=== PATIENT | female | born 1950 | race Caucasian/White ===

== ENCOUNTER → 2023-12-24 06:28 | Day surgery (SDC) | payer MEDICARE, OTHER, SELFPAY | LOC: GI 06:28 | PROVIDERS: ATTENDING PHYSICIAN Internal Medicine Gastroenterology | DX: R13.10 Dysphagia, unspecified (principal); K22.2 Esophageal obstruction; K44.9 Diaphragmatic hernia without obstruction or gangrene; Q39.9 Congenital malformation of esophagus, unspecified; K31.89 Other diseases of stomach and duodenum; K29.50 Unspecified chronic gastritis without bleeding; K20.80 Other esophagitis without bleeding | CPT/HCPCS: 43239; 88305; 88342 ==

== ENCOUNTER → 2023-12-31 13:03 | Outpatient (REF) | payer MEDICARE, OTHER, SELFPAY | LOC: WDC 13:03 | PROVIDERS: ATTENDING PHYSICIAN Obstetrics & Gynecology; FAMILY PHYSICIAN Family Medicine | DX: R92.2 Inconclusive mammogram (principal); M85.89 Other specified disorders of bone density and structure, multiple sites | CPT/HCPCS: 88305; 76641; 77080; 88341; 88342; 88360 ==

== ENCOUNTER → 2024-02-18 19:55 | Outpatient (REF) | payer MEDICARE, OTHER, SELFPAY | LOC: MRI 19:55 | PROVIDERS: ATTENDING PHYSICIAN Nurse Practitioner; FAMILY PHYSICIAN Family Medicine | DX: G50.0 Trigeminal neuralgia (principal) | CPT/HCPCS: 70553; A9575 ==

== ENCOUNTER → 2024-06-22 13:39 | Outpatient (REF) | payer MEDICARE, OTHER, SELFPAY | LOC: WDC 13:39 | PROVIDERS: ATTENDING PHYSICIAN Obstetrics & Gynecology; FAMILY PHYSICIAN Family Medicine | DX: Z12.31 Encounter for screening mammogram for malignant neoplasm of breast (principal); R92.8 Other abnormal and inconclusive findings on diagnostic imaging of breast | CPT/HCPCS: 76642; 77063; 77067 ==

== ENCOUNTER 2025-01-03 10:46 | Emergency (ER) | payer MEDICARE, OTHER, SELFPAY ==
[2025-01-03 10:53] VITALS: BP 142/78
--- NOTE | 2025-01-03 11:11 | EDRN ---
This RN assumed care of this pt at this time.
--- NOTE | 2025-01-03 11:11 | EDRN ---
Leidy Lofton PA in to see pt.
--- NOTE | 2025-01-03 11:16 | ED.GENMED ---
History of Present Illness
General
Chief Complaint: Fall
Source: patient
Exam Limitations: none
Time Seen by Provider: 01/03/25 10:59
History of Present Illness
History of Present Illness:
74yoF with a history of trigeminal neuralgia and hyperlipidemia presenting for evaluation after a fall about an hour ago. Patient is in the process of moving and has a lot of boxes around her house. Patient tripped over something and fell forward
striking her head against what she believes was a white board. She sustained a left eyebrow laceration during the fall. There was no loss of consciousness. Patient currently reports headache and lightheadedness. She is also developing some neck
pain. She denies any visual changes, nausea, vomiting. She does not take any blood thinners. Unknown last Tdap.
Past History
Past History
ED Past Medical History: Other (Trigeminal neuralgia)
ED Past Surgical History: Gynecological
Social History
Tobacco: Non-smoker
Living: with family
Phy Exam
General Physical Exam
General Presentation: well appearing and no apparent distress
General age: appears stated age
General Skin: warm and dry
General Habitus: normal
General Mental: alert
ENT Exam
ENT Exam: other (Approx 3.5cm gaping laceration just inferior to L eyebrow. No active bleeding. No surrounding hematoma.)
Additional ENT: No cervical spine tenderness.
Eye Exam
Eye Exam: PERRL
Neurological Exam
Neurological Exam: alert and no motor deficits
[place] Coma Scale
Eye Opening: Spontaneous
Verbal Response: Oriented
Motor Response: Obeys Commands
GCS Total Score: 15
Skin Exam
Skin Exam: normal color and warm/dry
Psychiatric Exam
Psychiatric Exam: normal mood/affect
Course
Orders/Labs/Results
Orders:
Orders
01/03/25 11:15
CT Cervical Spine W/o Iv Contr Urgent
Comment:
Reason For Exam: fall, head injury
Acetaminophen [Tylenol] 1,000 mg PO NOW STA
Tetanus/Diphth/Acelpertussis [Adacel] 0.5 ml IM .ONCE ONE
01/03/25 11:16
CT Head W/o Iv Contrast Urgent
Comment:
Reason For Exam: fall, head injury
01/03/25 12:10
Ice Pack-Treatment DIRECTED
Location: L eyebrow
Vital Signs
Initial and Last Documented VS:
Initial Vital Signs
Temp Pulse Resp BP Pulse Ox
98.0 F 86 16 142/78 98
01/03/25 10:53 01/03/25 10:53 01/03/25 10:53 01/03/25 10:53 01/03/25 10:53
Last Documented Vital Signs
Temp Pulse Resp BP Pulse Ox
98.0 F 64 16 108/74 97
01/03/25 10:53 01/03/25 14:40 01/03/25 14:40 01/03/25 14:40 01/03/25 14:40
Procedures
Laceration Closure
Left Eye brow:
Status of Wound: clean
Size of Wound in cm: 3.5
Description of Wound Edges: sharp
Preparation: cleaned with saline
Anesthesia: 1% Lidocaine with epi
Wound exploration: explored to base- no FB
Type of Closure: single layer closure
Skin Closure Material: 6-0 prolene
Number of sutures: 6
MDM/Problems Addressed
Differential Diagnosis Includes:
74yoF here after a mechanical fall with head strike. Presenting with a L eyebrow laceration. C/o headache and lightheadedness. VSS. She is awake, alert, with a GCS of 15. No other external signs of head trauma on exam. Differential diagnosis
includes: laceration, closed head injury, intracranial hemorrhage, skull fracture
Initial ED plan: Check CT head and cervical spine. Update Tdap and repair laceration.
*Critical Care Note
Total Time (30-74mins, 75-104mins- exclusive of procedures): Not Applicable
Update Note
Update Note:
Imaging negative for acute traumatic injuries. There is a thyroid nodule seen incidentally as well as a 9 mm rounded low-attenuation area within the white matter which was also seen on MRI previously. This does not correlate with patient's
symptoms. Patient provided with a copy of her radiology reports and instructed to follow-up with her PCP regarding her thyroid nodule. Home wound care and supportive care discussed. Patient instructed to have sutures removed in 5 days. ED return
precautions discussed. Patient expressed understanding and was discharged in stable condition.
ED Attending Note
-
Portions of this chart may have been created with voice recognition software.� Occasional wrong word or��sound alike� substitutions may have occurred due to the inherent limitations of voice recognition software.
Discharge Plan
Departure
Patient Disposition: Home (Routine Discharge)
Date of Disposition: 01/03/25
Time of Disposition: 14:28
Patient with high blood pressure during this ER visit?: No
Discharge Problem:
Head injury, Laceration of left eyebrow
Instructions: Head Injury in Adults (DC), Laceration Repair With Stitches (DC)
Prescriptions:
No Action
atorvastatin 10 mg Tablet
10 mg PO DAILY
carbamazepine 300 mg Capsule, Er Multiphase 12 Hr
300 mg PO BID
Fosamax
1 tab PO .FRIDAY
Referrals:
Arpita Julio MD [Family Provider] -
Activity Restrictions/Additional Instructions:
Stay hydrated and rest. Take Tylenol as needed for headaches. Keep laceration clean and dry.
Sutures should be removed in 5 days.
Please follow-up with your family doctor for the thyroid nodule seen on your CT scan. Return to the ER with any worsening symptoms or signs of infection.
Interventions
Interventions:
*Risk Screen - Suicide Last Done: 01/03/25 12:10
*General Assessment Last Done: 01/03/25 12:10
*Neglect/Abuse Screening Last Done: 01/03/25 12:10
*ED- Fall Risk Assessment Last Done: 01/03/25 12:10
*ED COVID-19 Vaccine History Last Done: 01/03/25 12:10
*Nursing Disposition Last Done: 01/03/25 14:48
ED-Musculoskeletal Assessment Last Done: 01/03/25 12:10
ED- Neurological Assessment Last Done: 01/03/25 12:10
ED-Skin Assessment Last Done: 01/03/25 12:14
Discharge Date and Time
Discharge Date/Time: 01/03/25 14:49
Print Language: STATELESS
--- NOTE | 2025-01-03 11:52 | EDRN ---
Leidy Hernandez PA in room w/ pt.
[2025-01-03 12:10] VITALS: BMI 22.5
[2025-01-03] MEDS: ADACEL 0.5 ML IM (12:22)
[2025-01-03] MEDS: TYLENOL 1000 MG PO (12:23)
[2025-01-03 12:30] VITALS: BP 121/63
--- NOTE | 2025-01-03 14:27 | EDRN ---
Leidy Flores in room w/ pt at this time.
[2025-01-03 14:40] VITALS: BP 108/74
== END 2025-01-03 14:49 | disposition home or self-care (01) ==
LOC: EMR 10:46
PROVIDERS: EMERGENCY PHYSICIAN Emergency Medicine; FAMILY PHYSICIAN Family Medicine
DX: S01.112A Laceration without foreign body of left eyelid and periocular area, initial encounter (principal); S09.90XA Unspecified injury of head, initial encounter; W01.198A Fall on same level from slipping, tripping and stumbling with subsequent striking against other object, initial encounter; E78.5 Hyperlipidemia, unspecified; Z23 Encounter for immunization
CPT/HCPCS: 99285; 12013; 90471; 70450; 72125; 90715

== ENCOUNTER → 2025-02-25 11:14 | Outpatient (REF) | payer MEDICARE, OTHER, SELFPAY | LOC: RAD 11:14 | PROVIDERS: ATTENDING PHYSICIAN Family Medicine | DX: E04.1 Nontoxic single thyroid nodule (principal) | CPT/HCPCS: 76536 ==

== ENCOUNTER → 2025-03-23 13:10 | Outpatient (REF) | payer MEDICARE, OTHER, SELFPAY ==
[2025-03-23 13:27] VITALS: BP 119/58; BP_SYST 74
== END ==
LOC: RADI 13:10
PROVIDERS: ATTENDING PHYSICIAN Family Medicine
DX: E04.1 Nontoxic single thyroid nodule (principal); Z80.8 Family history of malignant neoplasm of other organs or systems
CPT/HCPCS: 88173; 10005

== ENCOUNTER 2025-03-27 13:07 | Emergency (ER) | payer MEDICARE, OTHER, SELFPAY ==
[2025-03-27 13:09] VITALS: BP 130/72
--- NOTE | 2025-03-27 14:05 | ED.GENMED ---
History of Present Illness
General
Chief Complaint: Oral/Mouth Problem
Source: patient
Exam Limitations: none
Time Seen by Provider: 03/27/25 14:01
History of Present Illness
History of Present Illness:
Patient is a 74-year-old female with a history of trigeminal neuralgia currently being treated with carbamazepine. She is followed at [facility] by neurologist Dr. Arthur. She has had trigeminal neuralgia since 2013. She reports Friday 4
days ago she started with an exacerbation of her pain. She did speak with her neurologist who instructed her to increase carbamazepine to 800 mg a day for 2 days. She did this Friday and Friday. She only took 400 mg today she reports that is
getting so bad that she cannot even open her mouth or swallow/drink and eat. She has been feeling lightheaded because of not eating/drinking. yeah
Past History
Past History
ED Past Medical History: Other (Trigeminal neuralgia)
ED Past Surgical History: Gynecological
Social History
Tobacco: Non-smoker
Living: with family
Phy Exam
General Physical Exam
General Presentation: no apparent distress
General age: appears stated age
General Skin: warm and dry
General Habitus: normal
General Mental: alert
General Hydration: dry mucous membranes
ENT Exam
ENT Exam: other (No bony tenderness or redness to right side of face no trismus, tolerating secretions well)
Neurological Exam
Neurological Exam: alert and oriented x3
Musculoskeletal Exam
Musculoskeletal Exam: full ROM
Skin Exam
Skin Exam: normal color and warm/dry
Psychiatric Exam
Psychiatric Exam: normal mood/affect
Course
Orders/Labs/Results
Orders:
Orders
03/27/25 14:24
IV Insert/Care/Rem.- Treatment PRN
0.9% Sodium Chloride 1000 ml [Nss] 1,000 ml IV BOLUS
03/27/25 14:49
Complete Blood Count/With Diff Urgent
Comprehensive Metabolic Panel Urgent
03/27/25 15:59
Carbamazepine [Tegretol] 200 mg PO NOW STA
03/27/25 16:55
Dexamethasone Sod Phosphate [Decadron] 10 mg IV NOW STA
03/27/25 16:57
diazePAM [Valium Injection] 2 mg IV NOW STA
03/27/25 16:58
0.9% Sodium Chloride 500 ml [Nss] 500 ml IV BOLUS
Abnormal Lab Results
03/27/25
14:49
RBC 4.16 L 10^6/uL
(4.20-5.40)
MCH 32.2 H pg
(27.0-31.0)
Absolute Lymphs (auto) 1.0 L 10^3/uL
(1.2-3.4)
Absolute Monos (auto) 0.7 H 10^3/uL
(0.1-0.6)
Lymphocytes % 15.5 L %
(20.5-51.1)
Monocytes % 10.4 H %
(1.7-9.3)
Chloride 113 H mmol/L
(98-107)
BUN 27 H mg/dl
(7-17)
Glucose 107 H mg/dl
(70-99)
Total Protein 6.2 L g/dl
(6.3-8.2)
03/27/25 14:49
03/27/25 14:49
Vital Signs
Initial and Last Documented VS:
Initial Vital Signs
Temp Pulse Resp BP Pulse Ox
98.7 F 77 20 130/72 98
03/27/25 13:09 03/27/25 13:09 03/27/25 13:09 03/27/25 13:09 03/27/25 13:09
Last Documented Vital Signs
Temp Pulse Resp BP Pulse Ox
98.7 F 77 20 109/59 98
03/27/25 13:09 03/27/25 13:09 03/27/25 13:09 03/27/25 17:00 03/27/25 17:30
Screen Operator consulted with Physician
Screen Operator consulted with physician?: Yes
Name of Physician Consulted: Gwen
MDM/Problems Addressed
Differential Diagnosis Includes:
Not limited to chronic pain, trigeminal neuralgia/facial pain, dehydration, electrolyte abnormality
MDM/Problems Addressed:
As documented patient is a 74-year-old female with years of chronic trigeminal neuralgia followed by neurology and on carbamazepine. Patient reports for the past several days she has had a flare and has barely been able to eat or drink because of
discomfort. Patient presents awake alert no acute distress at this time here in the ER she reports she is not having a severe spasm. She was still given IV Valium and steroids to calm her flare/discomfort.
Patient was on gabapentin years ago we will try gabapentin in addition to her carbamazepine with close outpatient followed by her neurologist. Patient was dehydrated here and hydrated with NSS. d/ c with pt to increase fluids.
*Pulse Oximetry
SaO2: 98
Oxygen Mode of Delivery: Room air
Patient hypoxic: no
*Critical Care Note
Total Time (30-74mins, 75-104mins- exclusive of procedures): Not Applicable
ED Attending Note
-
Portions of this chart may have been created with voice recognition software.� Occasional wrong word or��sound alike� substitutions may have occurred due to the inherent limitations of voice recognition software.
Discharge Plan
Departure
Patient Disposition: Home (Routine Discharge)
Date of Disposition: 03/27/25
Time of Disposition: 17:33
Patient with high blood pressure during this ER visit?: Yes
Condition: Fair
Covid-19: Not Applicable
Discharge Problem:
trigeminal neuralgia
Instructions: Trigeminal neuralgia, BLOOD PRESSURE
Prescriptions:
New
prednisone 20 mg tablet
40 mg PO DAILY Qty: 8 0RF
gabapentin 100 mg capsule
100 mg PO TID Qty: 20 0RF
No Action
atorvastatin 10 mg Tablet
10 mg PO DAILY
carbamazepine 300 mg Capsule, Er Multiphase 12 Hr
300 mg PO BID
Fosamax
1 tab PO .FRIDAY
Referrals:
UNKNOWN - PT DOES,NOT KNOW [Family Provider]
Activity Restrictions/Additional Instructions:
As discussed continue your carbamazepine. A prescription for steroids as well as gabapentin was sent to pharmacy take as directed. Please call your neurologist for an appointment in the next several days.
Please increase your fluid intake as you were dehydrated here in the ER
return if any worsening of symptoms.
Interventions
Interventions:
*Risk Screen - Suicide Last Done: 03/27/25 13:09
*General Assessment Last Done: 03/27/25 14:51
*Neglect/Abuse Screening Last Done: 03/27/25 13:09
*ED- Fall Risk Assessment Last Done: 03/27/25 14:51
*ED COVID-19 Vaccine History Last Done: 03/27/25 14:51
Discharge Date and Time
Print Language: BURMESE
[2025-03-27 14:45] VITALS: BP 131/67
[2025-03-27 14:51] VITALS: BMI 23.4
[2025-03-27] MEDS: NSS 1000 IV (14:51)
[2025-03-27 14:57] LABS: % Basophils 0.3 % (0-2); % Eosinophils 1.9 % (0-6); % Immature Granulocytes 0.3 % (0-0.5); % Lymphocytes 15.5 % (20.5-51.1); % Monocytes 10.4 % (1.7-9.3); % Neutrophils 71.6 % (42.2-75.2); Absolute Eosinophils 0.1 10^3/uL (0-0.7); Absolute Monocytes 0.7 10^3/uL (0.1-0.6); Absolute Neutrophils 4.8 10^3/uL (1.4-6.5); Hematocrit 37.8 % (37.0-47.0); Hemoglobin 13.4 g/dL (12.0-16.0); Mean Corp Hgb Conc. 35.4 g/dL (33.0-37.0); Mean Corpuscular Hgb 32.2 pg (27.0-31.0); Mean Corpuscular Volume 90.9 fL (81.0-99.0); Mean Platelet Volume 10.4 fL (7.4-10.4); Nucleated Red Blood Cells % 0 %; Platelet Count 169 10^3/uL (130-400); Red Blood Cell Count 4.16 10^6/uL (4.20-5.40); Red Cell Dist. Width 11.8 % (11.5-14.5); White Blood Cell Count 6.7 10^3/uL (4.8-10.8)
[2025-03-27 15:00] VITALS: BP 119/64
[2025-03-27 15:24] LABS: ALT (SGPT) 23 U/L (0-35); AST (SGOT) 25 U/L (14-36); Albumin 3.8 g/dl (3.5-5.0); Alkaline Phosphatase 79 U/L (38-126); Blood Urea Nitrogen 27 mg/dl (7-17); Calcium 8.9 mg/dl (8.4-10.2); Carbon Dioxide 23 mmol/L (22-30); Chloride 113 mmol/L (98-107); Estimated Creatinine Clearance 45 ml/min; Glucose 107 mg/dl (70-99); Sodium 139 mmol/L (135-145); Total Bilirubin 0.3 mg/dl (0.2-1.3); Total Protein 6.2 g/dl (6.3-8.2); eGFR > 60.00
[2025-03-27 16:00] VITALS: BP 124/62
[2025-03-27] MEDS: TEGRETOL 200 MG PO (16:16)
[2025-03-27 17:00] VITALS: BP 109/59
[2025-03-27] MEDS: DECADRON 10 MG IV (17:16)
[2025-03-27] MEDS: NSS 500 IV (17:17)
[2025-03-27] MEDS: VALIUM INJECTION 2 MG IV (17:17)
== END 2025-03-27 18:00 | disposition home or self-care (01) ==
LOC: EMR 13:07
PROVIDERS: Nurse Practitioner; EMERGENCY PHYSICIAN Emergency Medicine
DX: G50.0 Trigeminal neuralgia (principal); E86.0 Dehydration
CPT/HCPCS: 99283; 96374; 96375; 96361; 80053; 85025

== ENCOUNTER → 2025-07-22 13:48 | Outpatient (REF) | payer MEDICARE, OTHER, SELFPAY | LOC: HWWDC 13:48 | PROVIDERS: ATTENDING PHYSICIAN Family Medicine | DX: Z12.31 Encounter for screening mammogram for malignant neoplasm of breast (principal) | CPT/HCPCS: 77063; 77067 ==

== ENCOUNTER 2025-08-08 06:19 | Day surgery (SDC) | payer MEDICARE, OTHER, SELFPAY | END 2025-08-08 13:38 | disposition home or self-care (01) | LOC: GI 06:19 | PROVIDERS: ATTENDING PHYSICIAN Internal Medicine Gastroenterology | DX: Z12.11 Encounter for screening for malignant neoplasm of colon (principal); K64.8 Other hemorrhoids; K57.30 Diverticulosis of large intestine without perforation or abscess without bleeding; D12.0 Benign neoplasm of cecum; Z86.0100 Personal history of colon polyps, unspecified | CPT/HCPCS: 45385; 88305 ==

== ENCOUNTER → 2025-08-09 07:24 | Outpatient (REF) | payer MEDICARE, OTHER, SELFPAY ==
--- NOTE | 2025-08-09 09:01 | EEG.RPT ---
Electroencephalogram Report
Recording
Date of EE08/09/25
Type of EEG: Routine
Length of EEG recordin minutes
Done with Video Recording: Yes
Patient Status: Outpatient
Recording Conditions: Awake
Hyperventilation Performed: No
Photic Stimulation Performed: Yes
Report
The posterior dominant rhythm reaches upto 11 Hz.
The background rhythm does not show asymmetry of amplitude or frequency.
There was no epileptiform activity seen.
Interpretation:
This was a normal routine EEG.
A normal EEG does not rule out the possibility of a seiuzre. Clinical correlation is recommended.
--- NOTE | 2025-08-09 09:17 | EEG.RPT ---
Electroencephalogram Report
Recording
Date of EE08/09/25
Type of EEG: Routine
Length of EEG recordin minutes
Done with Video Recording: Yes
Patient Status: Outpatient
Recording Conditions: Awake and Drowsy
Hyperventilation Performed: No
Photic Stimulation Performed: Yes
Report
Method:
A 21 channel digitized electroencephalogram was performed using the 10-20 International system of electrode placement. ECG was monitored. Video was recorded.
EEG Interpretation:
The posterior dominant reaches up to 11 Hz.
The background rhythm does not show any significant asymmetry of the amplitude or frequency between the hemispheres.
There is no epileptiform activity seen.
Photic stimulation did not produce any significant change.
Hyperventilation was not performed.
Clinical correlation:
This is a normal awake and drowsy state EEG. A normal EEG does not rule out the possibility of a seizure. Clinical correlation is recommended.
== END ==
LOC: EEG 07:24
PROVIDERS: ATTENDING PHYSICIAN Physician Assistant Medical; FAMILY PHYSICIAN Family Medicine
DX: R56.9 Unspecified convulsions (principal)
CPT/HCPCS: 95816

== ENCOUNTER → 2025-08-18 12:00 | Outpatient (REF) | payer MEDICARE, OTHER, SELFPAY | LOC: DHSLP 12:00 | PROVIDERS: ATTENDING PHYSICIAN Specialist Research Data Abstracter/Coder; FAMILY PHYSICIAN Family Medicine | DX: G47.30 Sleep apnea, unspecified (principal); R06.83 Snoring | CPT/HCPCS: 95800 ==